=== PATIENT | male | born 1970 | race African-American/Black ===

== ENCOUNTER 2021-12-20 14:49 | Observation (INO) ==
[2021-12-20] MEDS ORDERED: Naloxone 0.4 MG/ML INJ IVP PRN (17:46)
[2021-12-20] MEDS ORDERED: D5% in Water 1,000 ML IVC PRN (17:47)
[2021-12-20] MEDS ORDERED: Dextrose Gel 15 GM/37.5 ML TUBE PO PRN ×2 (17:47)
[2021-12-20] MEDS ORDERED: *HR* Dextrose 50 % in Water (Syg) 50 ML SYRINGE IVP PRN (17:47)
[2021-12-20 18:47] LABS: Estimated Average Glucose 177 mg/dl; Hemoglobin A1C 7.8 %
[2021-12-20] MEDS: Insulin LISPRO 300 UNITS/3 ML VIAL SUBQ SCH ×2 (20:57→22:15)
[2021-12-21 02:38] LABS: BUN/Creatinine Ratio 21 (6-26); Blood Urea Nitrogen 18 mg/dL (6-20); Carbon Dioxide 23 mEq/L (23-29); Chloride 107 mEq/L (98-107); Chol/HDL Ratio 5.1 (0-4.9); Cholesterol 188 mg/dL (< 200); Glucose 170 mg/dL (70-105); HDL Cholesterol 37 mg/dL (40-59); LDL Cholesterol,Calculated 95 mg/dL (< 100); Osmolality,Calculated 290 (280-300); Potassium 4.2 mEq/L (3.5-5.1); Sodium 137 mEq/L (136-145); Triglycerides 279 mg/dL (< 150)
[2021-12-21 02:49] LABS: Basophils # 0.1 K/mcL (0.0-0.2); Basophils % 0.9 %; Eosinophils # 0.3 K/mcL (0.0-0.6); Eosinophils % 3.2 %; Hematocrit 43.3 % (37.5-50.1); Immature Granulocytes % 0.2 % (0-4); Lymphocytes # 3.4 K/mcL (0.6-4.6); Lymphocytes % 42.4 %; Mean Corpuscular HGB Conc 32.3 g/dL (31.6-35.5); Mean Corpuscular Hemoglobin 29.7 pg (28.0-33.3); Mean Corpuscular Volume 91.7 fL (83.0-100.0); Mean Platelet Volume 11.1 fL (9.4-12.4); Monocytes # 0.8 K/mcL (0.0-1.3); Monocytes % 9.8 %; Neutrophils # 3.5 K/mcL (1.6-8.9); Platelet Count 291 K/mcL (140-400); Red Blood Count 4.72 M/mcL (4.19-5.50); Red Cell Distribution Width 13.1 % (11.5-14.5); Segmented Neutrophils % 43.5 %; White Blood Count 8.1 K/mcL (4.3-11.1)
[2021-12-21] MEDS: *HR* Enoxaparin 40 MG/0.4 ML SYRINGE SQ SCH (05:30)
[2021-12-21] MEDS ORDERED: Regadenoson 0.4 MG/5 ML SYRINGE IVP ONE (06:41)
[2021-12-21] MEDS: Insulin LISPRO 300 UNITS/3 ML VIAL SUBQ SCH ×4 (07:38→21:10)
[2021-12-21] MEDS: Aspirin 81 MG TAB.CHEW PO SCH (11:00)
[2021-12-21] MEDS: carvediloL 6.25 MG TABLET PO SCH (17:20)
[2021-12-21] MEDS: Gabapentin 300 MG CAPSULE PO SCH (21:14)
[2021-12-22] MEDS: *HR* Enoxaparin 40 MG/0.4 ML SYRINGE SQ SCH (05:22)
[2021-12-22] MEDS: Aspirin 81 MG TAB.CHEW PO SCH (08:16)
[2021-12-22] MEDS: carvediloL 6.25 MG TABLET PO SCH ×2 (08:16→17:21)
[2021-12-22] MEDS: Insulin LISPRO 300 UNITS/3 ML VIAL SUBQ SCH ×4 (08:17→20:49)
[2021-12-22] MEDS: Gabapentin 300 MG CAPSULE PO SCH ×2 (08:17→20:49)
[2021-12-22] MEDS ORDERED: TYLENOL PM PO PRN (10:45)
[2021-12-23 03:09] LABS: Basophils # 0.1 K/mcL (0.0-0.2); Basophils % 1.1 %; Eosinophils # 0.2 K/mcL (0.0-0.6); Eosinophils % 2.1 %; Hemoglobin 13.6 g/dL (12.9-16.9); Immature Granulocytes % 0.4 % (0-4); Lymphocytes # 2.9 K/mcL (0.6-4.6); Lymphocytes % 36.6 %; Mean Corpuscular HGB Conc 32.4 g/dL (31.6-35.5); Mean Corpuscular Hemoglobin 30.2 pg (28.0-33.3); Mean Corpuscular Volume 93.3 fL (83.0-100.0); Mean Platelet Volume 10.7 fL (9.4-12.4); Monocytes # 0.9 K/mcL (0.0-1.3); Monocytes % 11.2 %; Neutrophils # 3.9 K/mcL (1.6-8.9); Platelet Count 244 K/mcL (140-400); Segmented Neutrophils % 48.6 %; White Blood Count 7.9 K/mcL (4.3-11.1)
[2021-12-23 03:27] LABS: BUN/Creatinine Ratio 15 (6-26); Blood Urea Nitrogen 12 mg/dL (6-20); Calcium 8.9 mg/dL (8.6-10.3); Carbon Dioxide 25 mEq/L (23-29); Chloride 106 mEq/L (98-107); Glucose 168 mg/dL (70-105); Osmolality,Calculated 288 (280-300); Potassium 4.1 mEq/L (3.5-5.1); Sodium 137 mEq/L (136-145)
[2021-12-23] MEDS: *HR* Enoxaparin 40 MG/0.4 ML SYRINGE SQ SCH (05:29)
[2021-12-23] MEDS: Insulin LISPRO 300 UNITS/3 ML VIAL SUBQ SCH ×4 (07:13→20:54)
[2021-12-23] MEDS: carvediloL 6.25 MG TABLET PO SCH ×2 (08:41→16:35)
[2021-12-23] MEDS: Aspirin 81 MG TAB.CHEW PO SCH (08:42)
[2021-12-23] MEDS: Gabapentin 300 MG CAPSULE PO SCH ×2 (08:42→20:53)
[2021-12-23] MEDS ORDERED: Iopamidol - 370 200 ML INFUS..BTL ONE (12:46)
[2021-12-23] MEDS ORDERED: Heparin 1,000 UNITS/500 mL 500 ML ONE (12:46)
[2021-12-23] MEDS ORDERED: *HR* Heparin 10,000 UNIT/10 ML VIAL ONE (12:46)
[2021-12-23] MEDS ORDERED: 0.9 % Sodium Chloride 2,000 ML ONE (12:47)
[2021-12-23] MEDS ORDERED: Nitroglycerin 1,000 MCG/5 ML VIAL IV ONE (12:47)
[2021-12-23] MEDS ORDERED: *HR* Midazolam HCl 2 MG/2 ML VIAL ONE (13:27)
[2021-12-23] MEDS ORDERED: *HR* FentaNYL (PF) 100 MCG/2 ML VIAL ONE (13:27)
[2021-12-23] MEDS ORDERED: *HR* Ticagrelor 90 MG TABLET ONE (13:59)
[2021-12-23] MEDS ORDERED: Tirofiban 12.5 MG/250ML 12.5 MG/250 ML BAG ONE (13:59)
[2021-12-24 03:30] VITALS: O2SAT 98
[2021-12-24] MEDS: *HR* Enoxaparin 40 MG/0.4 ML SYRINGE SQ SCH (05:38)
[2021-12-24 07:05] VITALS: BP 119/87; PULSE 81; TEMP 97.5
[2021-12-24] MEDS: Gabapentin 300 MG CAPSULE PO SCH (08:23)
[2021-12-24] MEDS: Aspirin 81 MG TAB.CHEW PO SCH (08:23)
[2021-12-24] MEDS: carvediloL 6.25 MG TABLET PO SCH (08:24)
[2021-12-24] MEDS: Insulin LISPRO 300 UNITS/3 ML VIAL SUBQ SCH (08:27)
[2021-12-24] MEDS ORDERED: *HR* Ticagrelor 90 MG TABLET PO SCH (09:00)
== END 2021-12-24 10:23 | disposition home or self-care (01) ==
LOC: 3BNU → SUATTDRO 17:05
PROVIDERS: ADMIT Internal Medicine; ATTEND Registered Nurse